=== PATIENT | male | born 1965 | race Caucasian/White ===

== ENCOUNTER 2018-12-15 13:40 | Emergency (ER) | payer MEDICAID ==
[2018-12-15] MEDS: fentaNYL 100 MCG/2 ML INJ IVP PRN ×2 (14:27→15:22)
--- NOTE | 2018-12-15 14:28 | EDPHY ---
H & P Smoking Status: Heavy smoker Time Seen by Provider: 12/15/18 13:51 HPI/ROS: CHIEF COMPLAINT: Facial pain, nasal swelling HISTORY OF PRESENT ILLNESS: Patient presents to the emergency department with complaints of pain to his nose, facial swelling. He states that Friday evening he was at a thrift store when he developed a sudden onset of left nasal "tickle". He states he had some violent sneezing multiple times and some clear nasal drainage. Eyes were watering as well. He states that it did eventually get better on Friday and he [facility] Friday he states the left side of his nose was painful and swollen during the day. He did try extra-strength Excedrin. He remembers that he did not want to watch the [place] but listened to it on the radio because his right eye was hurting and he felt his vision was a bit blurry as well as having some dizziness present. On Friday things were generally worse and he went to an emergency department in [place] at about noon. He was there until 3:00 p.m.. He states that he got a CT scan which was read as negative, he also got some labs, and he was given an IV antibiotic. He was discharged with oral antibiotic and tramadol. He was able to take an oral antibiotic last night, possibly clindamycin. He states it made him feel sick to stomach but he did not have any vomiting. He did not take any medications today. He presents with complaints of extreme pain to the right nose with diffuse pain elsewhere on the right face and upper lip. He denies fevers or chills. He denies vision changes other than some blurriness from watery eyes. He has no sore throat. No ear pain. He denies any drainage other than some clear drainage on Friday. He states that he did put a paper clip up his right nose at 1 point over the weekend to see if he could scrape anything out. No other trauma reported. REVIEW OF SYSTEMS: Constitutional: No fever, no chills. Eyes: Increased lacrimation. ENT: No sore throat. Nosebleeds monthly, usually right-sided. Cardiovascular: No chest pain, no palpitations. Respiratory: No cough, no shortness of breath. Gastrointestinal: No abdominal pain, no vomiting. Genitourinary: No dysuria. Musculoskeletal: No back pain. Skin: No rashes. Neurological: No headache. General Appearance: Alert, significant distress. Afebrile. Eyes: Pupils equal and round no pallor, some injection bilaterally. Extra ocular movments intact. C/O pain to right medial canthal/lacrimal area with upward gaze. No erythema to orbital regions. ENT, Mouth: Mucous membranes moist. Oropharynx clear. Normal dentition. Entire nose is erythematous and quite swollen. Right side greater than left. Left nare normal, visualization in the right nare shows swelling to the lateral area almost touching the medial turbinate. No bleeding. No visible abscess or drainage. Diffusely quite tender to palpation. Tenderness to palpation also to the medial canthus region on the right and the right medial cheek and upper lip. Respiratory: There are no retractions, lungs are clear to auscultation. Cardiovascular: Regular rate and rhythm. No murmurs. Gastrointestinal: Abdomen is soft and nontender, no masses, bowel sounds normal. Neurological: Cranial nerves intact, no focal deficits. Skin: Warm and dry, no rashes. Musculoskeletal: Neck is supple nontender. Extremities are symmetrical, full range of motion, no edema. Psychiatric: Patient is oriented, uncomfortable, distracted, tearful at times, difficult historian Medical/surgical history: Hypertension. Social history: Use tobacco, denies drugs or alcohol. No history of IV drug use. (Erica Vásquez) Constitutional: Initial Vital Signs Temperature (C) 36.6 C 12/15/18 13:50 Heart Rate 98 12/15/18 13:50 Respiratory Rate 20 12/15/18 13:50 Blood Pressure 156/101 H 12/15/18 13:50 O2 Sat (%) 98 12/15/18 13:50 O2 Delivery Mode Room Air Allergies/Adverse Reactions: No Known Allergies Allergy (Unverified 12/15/18 13:50) Home Medications: Medication Instructions Recorded Tramadol HCl 12/15/18 Medical Decision Making ED Course/Re-evaluation: Release of medical information forms signed by patient. Contacted [facility] emergency department in [place] for records from visit from yesterday. 3:[address] Langford at the end of my shift. Patient care turned over to him after review of HPI, PE, plan. Patient currently getting IV antibiotics and analgesics medications. Awaiting laboratory evaluation and old records from [facility]. Have discussed with patient that admission necessary for treatment of his facial cellulitis. (Erica Vásquez) Differential Diagnosis: Diagnostic considerations include, but are not limited to, the following, 5this represents a partial list of diagnoses considered These considerations are based on history, physical exam, past history, reassessment and diagnostic testing: Facial cellulitis, cavernous sinus thrombosis, facial abscess, nasal abscess, sepsis (Collin Langford) Other Provider: Care assumed at change of shift. D/w off going physician. Chart reviewed. Pt interviewed and examined. Care assumed at 3:[address] scan yesterday. Ultimately after several hours we were able to obtain the copy of the report which was IV contrast facial CT which was negative for abscess. No signs of extension into the brain. For the records reviewed from the urgent care/ER in [place] he has additional medical problems to include: Depression Bipolar disease Anxiety Hypertension GERD Drug abuse, in remission. No prior IVDA When I examined him he was agitated and quite uncomfortable. Unable to keep his eyes open for exam. Thereby he is given a titration of fentanyl and Dilaudid as well as Ativan receiving the following: Fentanyl 100 mcg Dilaudid 1.5 mg Ativan 0.5 mg The above regimen was effective. I was able to do visual alcala as well as extraocular movements which were normal. No diplopia. His laboratory studies came back reflective of septic syndrome with the following: Lactic acid 2.4 White count 18.2 Preserved kidney function CO2 25 Normal anion gap I wanted to start this man on Zosyn however we do not have that. Thus I selected ertapenem which was given IV. I advised admission. I recommended [facility]. However, as he is from [place] he preferred to go to [facility] in [place]. Thereby I contacted Dr. Burris of the admitting service at [facility] and he was accepted for transfer. Patient would like to go by private vehicle. It is not recommended. We will ascertain and be certain that he is stable on his feet prior to doing such. Ultimately, an hour later he was in fact able to ambulate, even without assist without trouble. (Collin Langford) - Data Points Laboratory Results: 12/15/18 12/15/18 16:01 15:55 POC Sodium 141 mEq/L mEq/L (135-145) POC Potassium 3.8 mEq/L mEq/L (3.3-5.0) POC Chloride 106.0 mEq/L mEq/L (97-110) POC Total CO2 25 mEq/L mEq/L (22-31) POC BUN 17 mg/dL mg/dL (7-23) POC Creatinine 1.0 mg/dL mg/dL (0.7-1.3) POC Glucose 84 mg/dL mg/dL (70-100) POC Lactic Acid Brandon 2.4 mmol/L H mmol/L (0.7-2.1) POC Calcium 9.9 mg/dL mg/dL (8.5-10.4) Medications Given: Discontinued Medications Al Hydroxide/Mg Hydroxide (Maalox Susp) 30 ml PO ONCE ONE Stop: 12/15/18 14:49 Last Admin: 12/15/18 14:56 Dose: 30 ml Fentanyl (Sublimaze) 50 mcg IVP Q45M PRN PRN Reason: Pain, Severe Unable to Take PO Last Admin: 12/15/18 15:22 Dose: 50 mcg Hydromorphone HCl (Dilaudid) 1 mg IVP Q2HRS PRN PRN Reason: Pain, Severe Unable to Take PO Last Admin: 12/15/18 15:23 Dose: 1 mg Hydromorphone HCl (Dilaudid) 0.5 mg IVP EDNOW ONE Stop: 12/15/18 15:43 Last Admin: 12/15/18 16:34 Dose: Not Given Hyoscyamine Sulfate (Levsin, Hyomax-Sl) 0.25 mg PO ONCE ONE Stop: 12/15/18 14:49 Last Admin: 12/15/18 14:55 Dose: 0.25 mg Ceftriaxone Sodium/Dextrose (Rocephin 1 Gm (Premix)) 50 mls @ 100 mls/hr IV EDNOW ONE PRN Reason: Protocol Stop: 12/15/18 14:40 Last Admin: 12/15/18 14:36 Dose: 50 mls Ertapenem 1 gm/ Sodium (Chloride) 100 mls @ 200 mls/hr IV EDNOW ONE PRN Reason: Protocol Stop: 12/15/18 16:53 Last Admin: 02/05/19 17:25 Dose: 100 mls Sodium Chloride (Ns) 2,600 mls @ 5,200 mls/hr 30 ml/kg infuse over 30 min ( 2600 ml) IV EDNOW ONE PRN Reason: Protocol Stop: 12/15/18 16:53 Last Admin: 12/15/18 16:55 Dose: 2,600 mls Lidocaine (Lidocaine 2% Viscous) 15 ml PO ONCE ONE Stop: 12/15/18 14:49 Last Admin: 12/15/18 15:04 Dose: Not Given Lidocaine (Lidocaine 2% Viscous) 10 ml PO EDNOW ONE Stop: 12/15/18 14:57 Last Admin: 12/15/18 14:56 Dose: 10 ml Lorazepam (Ativan Injection) 0.5 mg IVP EDNOW ONE Stop: 12/15/18 15:09 Last Admin: 12/15/18 15:58 Dose: 0.5 mg Point of Care Test Results: CBC CBC Collection Date 12/15/18 CBC Collection Time 14:40 WBC 18.39 RBC 4.79 HGB 14.1 HCT 41.6 PLT 304 Neut # 14.6 Neut 79.3 LYMPH # 2.41 LYMPH 13.1 MCV 86.8 Chemistry 12/15/18 15:55 POC Sodium 141 mEq/L mEq/L (135-145) POC Potassium 3.8 mEq/L mEq/L (3.3-5.0) POC Chloride 106.0 mEq/L mEq/L (97-110) POC Total CO2 25 mEq/L mEq/L (22-31) POC BUN 17 mg/dL mg/dL (7-23) POC Creatinine 1.0 mg/dL mg/dL (0.7-1.3) POC Glucose 84 mg/dL mg/dL (70-100) POC Calcium 9.9 mg/dL mg/dL (8.5-10.4) Blood Gas/Lactic Acid-Venous 12/15/18 16:01 POC Lactic Acid Brandon 2.4 mmol/L H mmol/L (0.7-2.1) Departure - Departure Disposition: Acute Care Hospital Not [facility] Clinical Impression: Facial cellulitis, Severe sepsis Condition: Fair Additional Instructions: Go straight to [facility] for admission, as per your request. You're not to go home on the way over there. You're not to eat anything on the way over there. Referrals: NONE *PRIMARY CARE P,. [Primary Care Provider] - As per Instructions
[2018-12-15] MEDS ORDERED: ONDANSETRON 4 MG/2 ML VIAL ONE (14:44)
[2018-12-15] MEDS ORDERED: HYOSCYAMINE SULFATE 0.125 MG TAB ONE (14:44)
[2018-12-15] MEDS ORDERED: MAG HYDROX/AL HYDROX/SIMETH 30 ML UDCUP ONE (14:45)
[2018-12-15] MEDS ORDERED: LIDOCAINE 2% VISCOUS 15 ML UDCUP ONE (14:47)
[2018-12-15] MEDS ORDERED: HYOSCYAMINE SULFATE 0.125 MG TAB PO ONE (14:48)
[2018-12-15] MEDS ORDERED: MAG HYDROX/AL HYDROX/SIMETH 30 ML UDCUP PO ONE (14:48)
[2018-12-15] MEDS ORDERED: LIDOCAINE 2% VISCOUS 15 ML UDCUP PO ONE (14:56)
[2018-12-15] MEDS: LIDOCAINE 2% VISCOUS 15 ML UDCUP PO ONE ×2 (14:56→15:04)
[2018-12-15] MEDS ORDERED: LORazepam 2 MG/ML INJ IVP ONE (15:08)
[2018-12-15] MEDS ORDERED: HYDROmorphONE/DILAUDID 2 MG/ML INJ IVP PRN (15:08)
[2018-12-15] MEDS ORDERED: HYDROmorphONE/DILAUDID 1 MG/ML INJ IVP ONE (15:42)
[2018-12-15] MEDS ORDERED: ERTAPENEM 1 GM in NS 100 ML IV ONE (16:24)
[2018-12-15] MEDS ORDERED: NS 2,600 ML IV ONE (16:24)
[2018-12-15 19:08] VITALS: BP 149/107
== END 2018-12-15 18:25 | disposition short-term general hospital (02) ==
LOC: CED 13:40
DX: L03.211 Cellulitis of face (principal); R65.20 Severe sepsis without septic shock; I10 Essential (primary) hypertension
CPT/HCPCS: 80048-ER; 83605-ER; 96365; 96375-ER; 96376-ER; J0696; J1170; J1335; J2060; J2405; J3010